=== PATIENT | male | born 1975 | race Caucasian/White ===

== ENCOUNTER 2017-05-20 08:12 | Emergency (ER) | payer SELFPAY ==
[~2017-05-20] VITALS: Ht 170.2 cm; Wt 95.5 kg
[~2017-05-20 08:12] MED LIST: NAPR-576 PO
[2017-05-20 08:17] VITALS: BP 137/92; PULSE 72; RESP 18; TEMP 98.1; O2SAT 96
[2017-05-20] MEDS ORDERED: CYCL1TAB29 PO (09:03)
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
== END 2017-05-20 09:11 | disposition home or self-care (01) ==
LOC: PHEFT 08:12
DX: S16.1XXA Strain of muscle, fascia and tendon at neck level, initial encounter (principal); X58.XXXA Exposure to other specified factors, initial encounter
CPT/HCPCS: 99283

== ENCOUNTER 2017-09-28 15:10 | Emergency (ER) | payer SELFPAY ==
[~2017-09-28] VITALS: Ht 170.2 cm; Wt 93.0 kg
[~2017-09-28 15:10] MED LIST changes: +CYCL10TA PO; -NAPR-576 PO
[2017-09-28 15:15] VITALS: BP 138/89; PULSE 73; RESP 18; TEMP 97.9; O2SAT 95
--- NOTE | 2017-09-28 15:42 | PD ---
HPI Chief Complaint: Cold / Flu Symptoms Time Seen by Provider: 15:26 Travel History International Travel<30 days: No Contact w/Intl Traveler<30days: No Traveled to known affect area: No History of Present Illness HPI C/O SORE THROAT, SUBJ FEVERS, GENERALIZED BODY ACHES, BURNING SORE THROAT, 8/10 , NOT IMPROVED....patient denies alleviating factors, aggravated by swallowing. PFSH Past Medical History Hx Anticoagulant Therapy: No Asthma: Yes Cancer: No Cardiovascular Problems: No Chemotherapy: No Cerebrovascular Accident: No Diabetes: No Diminished Hearing: No Endocrine: No Gastrointestinal Disorders: No Genitourinary: No Musculoskeletal: No Neurologic: No Psychiatric: No Reproductive: No Respiratory: Yes (ASTHMA) Immunizations Current: Yes Tetanus Vaccination: < 5 Years Influenza Vaccination: No Past Surgical History Body Medical Devices: JAW 4 SREWS AND 2 PLATES IN LEFT JAW Hysterectomy: No Oral Surgery: Yes (JAW DISLOCATION) Pacemaker: No Other Surgery: Yes (JAW SX) Social History Alcohol Use: No Tobacco Use: Yes (11/03) Substance Use: No Allergies-Medications (Allergen,Severity, Reaction): Uncoded Allergies: VISINE (Allergy, Severe, EYES SWELL., 09/28/17) Reported Meds & Prescriptions Reported Meds & Active Scripts Active Amoxicillin 875 Mg Tab 875 Mg PO BID 7 Days Lidocaine Viscous Liq 2 % Liqd 5 Ml SWISH-SWAL QID PRN Review of Systems Except as stated in HPI: all other systems reviewed are Neg General / Constitutional: No: Fever Eyes: No: Visual changes HENT: Positive: Sore Throat Cardiovascular: No: Chest Pain or Discomfort Respiratory: No: Shortness of Breath Gastrointestinal: No: Abdominal Pain Genitourinary: No: Dysuria Musculoskeletal: No: Pain Skin: No Rash Neurologic: No: Weakness Psychiatric: No: Depression Endocrine: No: Polydipsia Hematologic/Lymphatic: No: Easy Bruising Physical Exam Narrative GENERAL: SKIN: Warm and dry. HEAD: Atraumatic. Normocephalic. EYES: Pupils equal and round. No scleral icterus. No injection or drainage. ENT: No nasal bleeding or discharge. Mucous membranes pink and moist. ERYTHEMATOUS OROPHARYNX BILATERALLY NECK: Trachea midline. No JVD. ANT CERVICAL LAD CARDIOVASCULAR: Regular rate and rhythm. RESPIRATORY: No accessory muscle use. Clear to auscultation. Breath sounds equal bilaterally. GASTROINTESTINAL: Abdomen soft, non-tender, nondistended. MUSCULOSKELETAL: Extremities without clubbing, cyanosis, or edema. No obvious deformities. NEUROLOGICAL: Awake and alert. No obvious cranial nerve deficits. Motor grossly within normal limits. Five out of 5 muscle strength in the arms and legs. Normal speech. PSYCHIATRIC: Appropriate mood and affect; insight and judgment normal. Data Data Last Documented VS Orders Orders Group A Rapid Strep Screen (09/28/17 15:39) Influenzae A/B Antigen (09/28/17 15:39) Ketorolac Inj (Toradol Inj) (09/28/17 15:45) Strep Culture (Group A) (09/28/17 15:45) Ed Discharge Order (09/28/17 16:31) MDM Medical Decision Making Medical Screen Exam Complete: Yes Emergency Medical Condition: Yes Medical Record Reviewed: Yes Differential Diagnosis FLU V STREP V VIRAL SYNDROME Narrative Course flu test negative, strep screen neg however clinically condition c/w bacterial pharyngitis so will treat Diagnosis Primary Impression: PHARYNGITIS Patient Instructions: General Instructions, Pharyngitis (ED) Scripts Amoxicillin (Amoxicillin) 875 Mg Tab 875 MG PO BID for Infection for 7 Days, #14 TAB 0 Refills Prov: Hossein Rodriguez MD 09/28/17 Lidocaine Viscous Liq (Lidocaine Viscous Liq) 2 % Liqd 5 ML SWISH-SWAL QID Y for PAIN, #1 BOTTLE 0 Refills Prov: Hossein Rodriguez MD 09/28/17 Disposition: 01 DISCHARGE HOME Condition: Stable Hossein Rodriguez MD Sep 28, 2017 15:42
[2017-09-28] MEDS ORDERED: KETOROLAC TROMETHAMINE 60 MG/2 ML (IM) VIAL IM ONE (15:45)
[2017-09-28 15:50] VITALS: BP 133/80; PULSE 76; RESP 18; O2SAT 96
[2017-09-28] MEDS ORDERED: LIDO1SOL8 SWISH-SWAL (16:29)
[2017-09-28] MEDS ORDERED: AMOX875T PO (16:29)
== END 2017-09-28 16:44 | disposition home or self-care (01) ==
LOC: PHED 15:10
DX: J02.9 Acute pharyngitis, unspecified (principal); F17.200 Nicotine dependence, unspecified, uncomplicated
CPT/HCPCS: 87081; 87804; 87880; 96372; 99284; J1885

== ENCOUNTER 2018-01-15 22:07 | Emergency (ER) | payer SELFPAY ==
[~2018-01-15] VITALS: Ht 170.2 cm; Wt 93.7 kg
[~2018-01-15 22:07] MED LIST changes: +AMOX875T PO; -CYCL10TA PO; +LIDO1SOL8 SWISH-SWAL
[2018-01-15 22:14] VITALS: BP 132/86; PULSE 98; RESP 18; TEMP 98.5; O2SAT 98
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
[2018-01-16] MEDS ORDERED: IBUPROFEN 800 MG TAB PO ONE (00:15)
[2018-01-16] MEDS ORDERED: traMADol HCL 50 MG TAB PO ONE (00:15)
[2018-01-16] MEDS ORDERED: TRAM50TA PO (00:20)
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
[2018-01-16 00:57] VITALS: BP 135/86
== END 2018-01-16 00:59 | disposition home or self-care (01) ==
LOC: PHEFT 22:07
DX: S89.92XA Unspecified injury of left lower leg, initial encounter (principal); Y04.2XXA Assault by strike against or bumped into by another person, initial encounter
CPT/HCPCS: 73564; 99283

== ENCOUNTER 2018-08-07 02:33 | Inpatient (IN) ==
[2018-08-07] MEDS ORDERED: Sod Chloride 0.9% Inj 1,000 ML IV.SIG ONE (02:43)
[2018-08-07] MEDS ORDERED: Aluminum/Magnesium/Simethacone Susp 30 ML UDC PO ONE (02:44)
[2018-08-07] MEDS ORDERED: Pantoprazole Inj 40 MG Vial IV.PUSH ONE (02:44)
--- NOTE | 2018-08-07 02:49 | ED ---
HPI General Chief Complaint: Abdominal Pain Stated Complaint: Right flank pain/abd pain x 3 days Time Seen by Provider: 08/07/18 02:38 History of Present Illness HPI narrative: Patient is 43-year-old male with no significant past medical history, likes to eat very spicy food, abuse alcohol, presented to emergency room for epigastric abdominal pain for 3 days, constant. Denies nausea vomiting diarrhea. Related Data Home Medications Medication Instructions Recorded Confirmed No Known Home Medications 08/07/18 08/07/18 Allergies Allergy/AdvReac Type Severity Reaction Status Date / Time VISINE Allergy Severe EYES SWELL. Uncoded 06/25/18 12:46 Review of Systems ROS: all other systems reviewed are negative Gastrointestinal Reports abdominal pain PMFSH Medical History Medical History No active medical problems (Acute) Surgical History Surgical History History of mandibular surgery (Acute) Hx of knee surgery (Acute) Social History Social History Substance History: No History of Abuse Second Hand Smoke Exposure: Yes Smoking Status: Current every day smoker Tobacco Type: Cigarettes How Often Do You Have a Drink Containing Alcohol: 4 or more times a week Recent Travel in [facility] within the Last 8 Weeks: No Recent Out of Country Travel within the Last 8 Weeks: No Exam Narrative Exam Narrative: GENERAL: [-Patient is 43-year-old male with epigastric tenderness.] SKIN: Focused skin assessment warm/dry. HEAD: Atraumatic. Normocephalic. EYES: Pupils equal and round. No scleral icterus. No injection or drainage. ENT: No nasal bleeding or discharge. Mucous membranes pink and moist. NECK: Trachea midline. No JVD. CARDIOVASCULAR: Regular rate and rhythm. No murmur appreciated. RESPIRATORY: No accessory muscle use. Clear to auscultation. Breath sounds equal bilaterally. GASTROINTESTINAL: Abdomen soft, tender in the epigastric area, nondistended. Hepatic and splenic margins not palpable. Raymond sign is negative. MUSCULOSKELETAL: No obvious deformities. No clubbing. No cyanosis. No edema. NEUROLOGICAL: Awake and alert. No obvious cranial nerve deficits. Motor grossly within normal limits. Normal speech. PSYCHIATRIC: Appropriate mood and affect; insight and judgment normal. Course Initial Documented Vital Signs Temperature 97.9 F 08/07/18 02:37 Pulse Rate 92 H 08/07/18 02:37 Respiratory Rate 20 08/07/18 02:37 Blood Pressure 129/81 08/07/18 02:37 Pulse Oximetry 97 08/07/18 02:37 Last Documented Vital Signs Temperature 97.9 F 08/07/18 02:37 Pulse Rate 92 H 08/07/18 02:37 Respiratory Rate 20 08/07/18 02:37 Blood Pressure 129/81 08/07/18 02:37 Pulse Oximetry 97 08/07/18 02:37 Critical Care Time Critical Care Time: Yes Total Critical Care Time: 30 Attestation: Treated with 2 L of fluids, pain medications, patient has acute pancreatitis. Case discussed with hospitalist. For admission. Medical Decision Making MDM Narrative Medical decision making narrative: Blood work, urine analysis ordered, IV fluids GI cocktail given. Reevaluation is pending 0450: Patient feels better with pain medications and IV fluids, was diagnosed with acute pancreatitis, lipase level is 2700. She needs to be admitted for further evaluation and treatment, case was discussed with Dr. Elmore, accepted for admission. Medical Screen Exam Complete: Yes Emergency Medical Condition: Yes Differential Diagnosis Differential Diagnosis: Gastritis versus pancreatitis versus constipation versus gastric reflux. Lab Data Result diagrams: 08/07/18 03:07 08/07/18 03:07 Lab Results 08/07/18 08/07/18 08/07/18 Range/Units 03:07 03:07 03:07 CBC w Diff Auto diff final WBC 15.1 H (4.0-11.0) th/mm3 RBC 5.43 (4.50-5.90) mil/mm3 Hgb 17.7 H (13.0-17.0) gm/dL Hct 50.4 (39.0-51.0) % MCV 92.7 (80.0-100.0) fL MCH 32.5 (27.0-34.0) pg MCHC 35.1 (32.0-36.0) % RDW 12.6 (11.6-17.2) % Plt Count 189 (150-450) th/mm3 MPV 7.6 (7.0-11.0) fL Neut % (Auto) 66.8 (16.0-70.0) % Lymph % (Auto) 25.3 (9.0-44.0) % [place] % (Auto) 5.1 (0.0-8.0) % Eos % (Auto) 2.2 (0.0-4.0) % Baso % (Auto) 0.6 (0.0-2.0) % Neut # (Auto) 10.1 H (1.8-7.7) th/mm3 Lymph # (Auto) 3.8 (1.0-4.8) th/mm3 [place] # (Auto) 0.8 (0.0-0.9) th/mm3 Eos # (Auto) 0.3 (0.0-0.4) th/mm3 Baso # (Auto) 0.1 (0.0-0.2) th/mm3 WBC Differential . Differential Comment . Sodium 139 (136-145) meq/L Potassium 4.1 (3.5-5.1) meq/L Chloride 106 (98-107) meq/L Carbon Dioxide 24.1 (21.0-32.0) meq/L Anion Gap 9 (5-15) meq/L BUN 13 (7-18) mg/dL Creatinine 1.00 (0.60-1.30) mg/dL Estimated GFR 81 L (>89) mL/min Random Glucose 112 H (74-106) mg/dL Calcium 8.6 (8.5-10.1) mg/dL Total Bilirubin 0.3 (0.2-1.0) mg/dL AST 26 (15-37) U/L ALT 34 (12-78) U/L Alkaline Phosphatase 90 (45-117) U/L Total Protein 7.5 (6.4-8.2) g/dL Albumin 3.6 (3.4-5.0) g/dL Lipase 2725 H (73-393) U/L Urine Color Yellow (Yellw/Straw) Urine Clarity Clear (Clear) Urine pH 6.0 (5.0-8.5) Ur Specific [place] 1.025 (1.002-1.035) Urine Protein Trace (Neg-Trace) mg/dL Urine Glucose (UA) Negative (Negative) mg/dL Urine Ketones Negative (Negative) mg/dL Urine Occult Blood Moderate H (Negative) Urine Nitrate Negative (Negative) Urine Bilirubin Negative (Negative) Urine Urobilinogen 0.2 (Less than 2) mg/dL Ur Leukocyte Esterase Negative (Negative) Urine RBC 4-15 H (0-3) /hpf Urine WBC 0-5 (0-5) /hpf Ur Squamous Epith Cells 0-5 (0-5) /hpf Micro UA Comment Culture not ind Ur Microscopic Review Microscopic reviewed Urine Culture Comments Culture not ind Serum Alcohol Less than 3 (0-5) mg/dL Imaging Data Radiologist's impression: Chest X-Ray 08/07/18 03:31 CONCLUSION: No acute cardiopulmonary abnormality is identified. Abdomen/Pelvis CT 08/07/18 03:44 CONCLUSION: 1. There is nonspecific inflammation in the retroperitoneal fat adjacent to the pancreatic head, duodenum, and medial right kidney. No renal stones are present and the inflammatory changes are more centered around the second portion of the duodenum and adjacent to the head of the pancreas suggesting either duodenitis or mild pancreatitis as a potential cause. 2. Hepatic steatosis. ECG Data EKG Prior to Arrival: No Attestation: I personally reviewed and interpreted this ECG as follows: Prior ECG tracings: available for review Interpretation: Normal sinus rhythm with rate [address] elevation, nonspecific ST changes. Discharge Plan Discharge Disposition Patient Disposition: 30 Still Patient Discharge Condition Condition: Serious Discharge Details Diagnosis: Acute pancreatitis, Alcohol abuse Physicians Team ED Provider: Teto Moulton Primary Care Provider: Primary Care CarmelitaiMesha Rxs /Orders / Referrals /Forms Prescriptions: No Action No Known Home Medications RF: 0 Discharge Interventions Interventions: Vital Signs Last Done: 08/07/18 02:37 Status ED Status: Admitted Patient
[2018-08-07 03:19] LABS: Bilirubin,Urine Negative (Negative); Clarity,Urine Clear (Clear); Color,Urine Yellow (Yellw/Straw); Glucose,Urine (UA) Negative (Negative); Leukocyte Esterase,Urine Negative (Negative); Nitrite,Urine Negative (Negative); Specific Gravity,Urine 1.025 (1.002-1.035); Urobilinogen,Urine 0.2 mg/dL (Less than 2)
[2018-08-07 03:22] LABS: Baso # (Auto) 0.1 th/mm3 (0.0-0.2); Baso % (Auto) 0.6 % (0.0-2.0); Eos # (Auto) 0.3 th/mm3 (0.0-0.4); Eos % (Auto) 2.2 % (0.0-4.0); Hematocrit 50.4 % (39.0-51.0); Hemoglobin 17.7 gm/dL (13.0-17.0); Lymph # (Auto) 3.8 th/mm3 (1.0-4.8); Lymph % (Auto) 25.3 % (9.0-44.0); Mean Corpuscular HGB Conc 35.1 % (32.0-36.0); Mean Corpuscular Hemoglobin 32.5 pg (27.0-34.0); Mean Corpuscular Volume 92.7 fL (80.0-100.0); Mean Platelet Volume 7.6 fL (7.0-11.0); Mono # (Auto) 0.8 th/mm3 (0.0-0.9); Mono % (Auto) 5.1 % (0.0-8.0); Neut # (Auto) 10.1 th/mm3 (1.8-7.7); Neut % (Auto) 66.8 % (16.0-70.0); Platelet Count 189 th/mm3 (150-450); Red Blood Count 5.43 mil/mm3 (4.50-5.90); Red Cell Distribution Width 12.6 % (11.6-17.2); White Blood Count 15.1 th/mm3 (4.0-11.0)
[2018-08-07 03:28] LABS: Squamous Epithelial Cell,Urine 0-5 /hpf (0-5); WBC,Urine 0-5 /hpf (0-5)
[2018-08-07 03:29] LABS: Chloride 106 meq/L (98-107); Potassium 4.1 meq/L (3.5-5.1); Sodium 139 meq/L (136-145)
[2018-08-07 03:32] LABS: Calcium 8.6 mg/dL (8.5-10.1)
[2018-08-07] MEDS ORDERED: Morphine Sulfate Inj 2 MG/ML Vial IV.PUSH ONE (03:32)
[2018-08-07 03:33] LABS: Albumin 3.6 g/dL (3.4-5.0); Anion Gap 9 meq/L (5-15); Blood Urea Nitrogen 13 mg/dL (7-18); Carbon Dioxide 24.1 meq/L (21.0-32.0); Glucose,Random 112 mg/dL (74-106)
[2018-08-07 03:36] LABS: Alanine Aminotransferase 34 U/L (12-78); Aspartate Aminotransferase 26 U/L (15-37); Glomerular Filtration Rate 81 mL/min (>89)
[2018-08-07 03:37] LABS: Total Protein 7.5 g/dL (6.4-8.2)
[2018-08-07 03:38] LABS: Lipase 2725 U/L (73-393)
[2018-08-07 03:39] LABS: Alkaline Phosphatase 90 U/L (45-117)
--- NOTE | 2018-08-07 03:49 | XR ---
EXAM DATE: 08/07/2018 3:31 AM EDT AGE/SEX: 43 years / Male INDICATIONS: Chest pain. CLINICAL DATA: This is the patient's initial encounter. Patient reports that signs and symptoms have been present for 3 days and indicates a pain score of 5/10. MEDICAL/SURGICAL HISTORY: None. None. COMPARISON: [facility], CHEST SINGLE AP, 10/22/2015. . FINDINGS: Portable AP view of the chest demonstrates a normal-sized cardiac silhouette. No effusion, consolidat ion, or pneumothorax is identified. The bones and soft tissues demonstrate no acute finding. CONCLUSION: No acute cardiopulmonary abnormality is identified. Electronically signed by: Lukas Byrd MD 08/07/2018 3:47 AM EDT
[2018-08-07] MEDS ORDERED: Sod Chloride 0.9% Inj 1,000 ML IV.CONT SCH (04:00)
--- NOTE | 2018-08-07 04:48 | CT ---
EXAM DATE: 08/07/2018 3:52 AM EDT AGE/SEX: 43 years / Male INDICATIONS: Abdominal pain. Right flank pain. Both for three days. CLINICAL DATA: This is the patient's initial encounter. Patient reports that signs and symptoms have been present for 1 day and indicates a pain score of 8/10. MEDICAL/SURGICAL HISTORY: . . Mandibular. Knee. RADIATION DOSE: 17.65 CTDI (mGy) COMPARISON: No prior exams available for comparison. TECHNIQUE: Multiple contiguous axial images were obtained through the abdomen. Images were obtained using multiple row detector helical technique. Using automated exposure control and adjustment of the mA and/or kV according to patient size, radiation dose was kept as low as reasonably achievable to o btain optimal diagnostic quality images. DICOM format image data is available electronically for rev iew and comparison. FINDINGS: Lower chest: No acute abnormality is identified. Hepatobiliary: Liver density is decreased indicating steatosis. There is fat sparing around the gallb ladder fossa. No focal liver lesion is identified on this noncontrast examination. No calcified galls tones are present. Kidneys: No hydronephrosis, stone, or mass. There is mild inflammatory change adjacent to the medial right kidney. Adrenal Glands: Within normal limits. Spleen: Within normal limits. Pancreas: There is mild inflammatory change adjacent to the pancreatic head. Remainder of the pancrea s demonstrates no abnormality. Vascular: The aorta is nonaneurysmal. Bowel/Mesentery: Stomach demonstrates no abnormality. There is mild retroperitoneal inflammatory retana ge in the fat adjacent to the second portion the duodenum and pancreatic head. No free air or free fl uid is identified. Abdominal Wall: No hernia is visualized. Retroperitoneum: No lymphadenopathy. Bladder: No wall thickening or mass. Reproductive: There is vas deferens calcification. Inguinal: No lymphadenopathy or hernia. Musculoskeletal: No acute osseous abnormality is identified. CONCLUSION: 1. There is nonspecific inflammation in the retroperitoneal fat adjacent to the pancreatic head, duo denum, and medial right kidney. No renal stones are present and the inflammatory changes are more bella tered around the second portion of the duodenum and adjacent to the head of the pancreas suggesting e ither duodenitis or mild pancreatitis as a potential cause. 2. Hepatic steatosis. Electronically signed by: Lukas Byrd MD 08/07/2018 4:47 AM EDT
[2018-08-07] MEDS ORDERED: Bisacodyl 10 MG Supp RECTAL PRN (04:56)
[2018-08-07] MEDS ORDERED: Acetaminophen 325 MG Tablet PO PRN (04:56)
[2018-08-07] MEDS ORDERED: LORazepam 1 MG Tablet PO PRN (04:56)
[2018-08-07] MEDS ORDERED: Haloperidol Inj 5 MG/ML Ampul IV.PUSH PRN (04:56)
[2018-08-07] MEDS ORDERED: Morphine Sulfate Inj 2 MG/ML Vial IV.PUSH PRN (04:57)
[2018-08-07] MEDS: Sod Chloride 0.9% Inj 1,000 ML IV.CONT SCH ×2 (05:09→14:58)
[2018-08-07] MEDS ORDERED: Sodium Chloride 0.9% 2 ML Flush PRN IV.FLUSH (05:13)
--- NOTE | 2018-08-07 08:50 | P.HP ---
History of Present Illness Primary Care Physician: No Primary Care Physician Chief Complaint: Abdominal pain History of Present Illness: This is a pleasant 43-year-old male patient with a known medical history of tobacco abuse who presented to the ED with complaints of abdominal pain. Patient states that Tuesday night he developed a sharp mid epigastric abdominal pain that radiated to his right lower quadrant. He states that the pain continued throughout the day on Tuesday and states he was unable to sleep secondary to the pain which prompted his presentation to the ED. Patient denies any associated nausea, vomiting, diarrhea with the pain. He states that Tuesday evening he did drink a few beers with his friends which may have caused his symptoms. Patient does state that he drinks beer only on the weekends and usually only 3-4 at a time. He denies any recent illness including fever, chills, cough, headache, chest pain, or dysuria. Does admit to a significant family medical history of colon cancer in his mother's side. Denies ever having a colonoscopy in the past. Does not follow with a PCP. - Diagnosis (1) Acute pancreatitis (2) Alcohol abuse Inpatient Certification: I certify that the inpatient services were ordered in accordance with Medicare regulations governing the order. This includes certification that hospital inpatient services are reasonable and necessary and in the case of services not specified as inpatient-only under 42 CFR 419.22(n), that they are appropriately provided as inpatient services in accordance to with the 2-midnight benchmark under 43 CFR 412.3(e) Estimated Total Length of Stay (Days): 2 Plans for Post Hospital Care: Not yet determined Review of Systems All other systems reviewed negative except as stated in [facility] - History History Provided By: Patient - Medical History Medical History: Medical History (Last Reviewed 08/07/18 @ 09:26 by Raiza Wright) No active medical problems - Surgical History Surgical History: Surgical History (Last Reviewed 08/07/18 @ 09:26 by Raiza Wright) History of mandibular surgery Hx of knee surgery - Family History Family History: Family History (Last Updated 08/07/18 @ 09:26 by Raiza Wright) Other Family history in first degree relatives is unremarkable - Social History I have reviewed the patient's Social History: Yes - Tobacco History Second Hand Smoke Exposure: Yes Tobacco Use In Past 30 Days: Yes Smoking Status: Current every day smoker Tobacco Type: Cigarettes - Alcohol History How Often Do You Have a Drink Containing Alcohol: 4 or more times a week - Substance Use History Substance History: No History of Abuse - Travel History Recent Travel in the [place] Within the Last 8 Weeks: No Recent Travel Out of the Country Within the Last 8 Weeks: No - Immunization History Tetanus Immunization: <5 Years Medications and Allergies Active Medications: Active Medications Acetaminophen (Tylenol) 650 mg PO Q4H PRN PRN Reason: Temp > 100.4 Al Hydroxide/Mg Hydroxide (Milk Of Magnesia Liq) 30 ml PO Q12H PRN PRN Reason: Mild Constipation Bisacodyl (Dulcolax Supp) 10 mg RECTAL DAILY PRN PRN Reason: SEVERE CONSITIPATION Flumazenil (Romazecon Inj) 0.2 mg IV.PUSH Q1M PRN PRN Reason: OVERSEDATION Folic Acid (Folic Acid) 1 mg PO DAILY [facility]ILVER Stop: 08/12/18 08:59 Haloperidol Lactate (Haldol Inj) 1 mg IV.PUSH Q15M PRN PRN Reason: for severe agitation Sodium Chloride (Ns Inj) 1,000 mls @ 100 mls/hr IV.CONT .Q10H WILVER Last Admin: 08/07/18 05:09 Dose: 100 mls/hr Lactulose (Lactulose Liq) 30 ml PO DAILY PRN PRN Reason: SEVERE CONSITIPATION Lorazepam (Ativan) 1 mg PO Q4H PRN PRN Reason: for CIWA 8-10 Lorazepam (Ativan Inj) 2 mg IV.PUSH Q2H PRN PRN Reason: for CIWA 11-14 Lorazepam (Ativan Inj) 2 mg IV.PUSH Q1H PRN PRN Reason: for CIWA 15-20 Lorazepam (Ativan Inj) 2 mg IV.PUSH Q15M PRN PRN Reason: for CIWA > 20 Lorazepam (Ativan Inj) 1 mg IV.PUSH Q4H PRN PRN Reason: for CIWA 8-10 Lorazepam (Ativan) 2 mg PO Q2H PRN PRN Reason: for CIWA 11-14 Morphine Sulfate (Morphine Inj) 2 mg IV.PUSH Q4H PRN PRN Reason: PAIN 6-10 Multivitamins/Minerals (Theragran-M) 1 tab PO DAILY [facility]ILVER Stop: 08/12/18 08:59 Ondansetron HCl (Zofran Inj) 4 mg IV.PUSH Q6H PRN PRN Reason: NAUSEA OR VOMITING Pantoprazole Sodium (Protonix Inj) 40 mg IV.PUSH Q12H [facility] Senna/Docusate Sodium (Wendy-Colace) 1 tab PO BID W[place]VER Sennosides (Senokot) 17.2 mg PO Q12H PRN PRN Reason: Moderate Constipation Sodium Chloride (Ns Flush) 2 ml IV.FLUSH BID WILVER Sodium Chloride (Ns Flush) 2 ml IV.FLUSH PRN PRN PRN Reason: FLUSH AFTER USING IV ACCESS Thiamine HCl (Vitamin B1) 100 mg PO DAILY WILVER Allergies Allergy/AdvReac Type Severity Reaction Status Date / Time VISINE Allergy Severe EYES SWELL. Uncoded 06/25/18 12:46 Home Medications Medication Instructions Recorded Confirmed Type No Known Home Medications 08/07/18 08/07/18 History Exam Vital signs: Vital Signs 08/07/18 02:37 08/07/18 05:52 08/07/18 06:00 Temperature 97.9 F 96.2 F L Pulse Rate 92 H 91 H 63 Respiratory Rate 20 20 18 Blood Pressure 129/81 124/78 127/95 H Pulse Oximetry 97 99 97 08/07/18 08:00 Temperature 96.1 F L Pulse Rate 62 Respiratory Rate Blood Pressure 166/57 H Pulse Oximetry 97 Intake & Output 08/06/18 08/07/18 08/07/18 18:59 06:59 18:59 Weight 90.7 kg Narrative: GENERAL: Well-developed, well-nourished patient in [facility]. SKIN: Warm and dry. No rash. HEAD: Normocephalic. Atraumatic. EYES: Pupils equal and round. No scleral icterus. No injection or drainage. ENT: No nasal bleeding or discharge. Mucous membranes pink and moist. NECK: Supple. Trachea midline. CARDIOVASCULAR: Regular rate and rhythm. S1, S2 noted. No murmur appreciated. RESPIRATORY: No accessory muscle use. Clear to auscultation. Breath sounds equal bilaterally. GASTROINTESTINAL: Abdomen soft, nondistended. Normoactive bowel sounds x4. Midepigastric abdominal pain to palpation. MUSCULOSKELETAL: No obvious deformities. Extremities without clubbing, cyanosis , or edema. NEUROLOGICAL: Awake and alert. No obvious cranial nerve deficits. Motor grossly within normal limits. 5/5 muscle strength in bilateral upper and lower extremities. Normal speech. PSYCHIATRIC: Appropriate mood and affect; insight and judgment normal. Results - Labs CBC & Chem 7: 08/07/18 03:07 08/07/18 03:07 Labs: Laboratory Results - last 24 hr 08/07/18 08/07/18 08/07/18 03:07 03:07 03:07 CBC w Diff Auto diff final WBC 15.1 H RBC 5.43 Hgb 17.7 H Hct 50.4 MCV 92.7 MCH 32.5 MCHC 35.1 RDW 12.6 Plt Count 189 MPV 7.6 Neut % (Auto) 66.8 Lymph % (Auto) 25.3 [place] % (Auto) 5.1 Eos % (Auto) 2.2 Baso % (Auto) 0.6 Neut # (Auto) 10.1 H Lymph # (Auto) 3.8 [place] # (Auto) 0.8 Eos # (Auto) 0.3 Baso # (Auto) 0.1 WBC Differential . Differential Comment . Sodium 139 Potassium 4.1 Chloride 106 Carbon Dioxide 24.1 Anion Gap 9 BUN 13 Creatinine 1.00 Estimated GFR 81 L Random Glucose 112 H Calcium 8.6 Total Bilirubin 0.3 AST 26 ALT 34 Alkaline Phosphatase 90 Total Protein 7.5 Albumin 3.6 Lipase 2725 H Urine Color Yellow Urine Clarity Clear Urine pH 6.0 Ur Specific [place] 1.025 Urine Protein Trace Urine Glucose (UA) Negative Urine Ketones Negative Urine Occult Blood Moderate H Urine Nitrate Negative Urine Bilirubin Negative Urine Urobilinogen 0.2 Ur Leukocyte Esterase Negative Urine RBC 4-15 H Urine WBC 0-5 Ur Squamous Epith Cells 0-5 Micro UA Comment Culture not ind Ur Microscopic Review Microscopic reviewed Urine Culture Comments Culture not ind Serum Alcohol Less than 3 - Imaging Impressions Chest X-Ray 08/07/18 03:31 CONCLUSION: No acute cardiopulmonary abnormality is identified. Abdomen/Pelvis CT 08/07/18 03:44 CONCLUSION: 1. There is nonspecific inflammation in the retroperitoneal fat adjacent to the pancreatic head, duodenum, and medial right kidney. No renal stones are present and the inflammatory changes are more centered around the second portion of the duodenum and adjacent to the head of the pancreas suggesting either duodenitis or mild pancreatitis as a potential cause. 2. Hepatic steatosis. Caprini VTE Risk Assessment Caprini VTE Risk Assessment: No/Low Risk (score <= 1) Caprini Risk Assessment Model: Point Value = 1 Point Value = 2 Point Value = 3 Point Value = 5 Age 41-60 Minor surgery BMI > 25 kg/m2 Swollen legs Varicose veins or History of unexplained or recurrent spontaneous Oral contraceptives or hormone replacement Sepsis (< 1 month) Serious lung disease, including pneumonia (< 1 month) Abnormal pulmonary function Acute myocardial infarction Congestive heart failure (< 1 month) History of inflammatory bowel disease Medical patient at bed rest Age 61-74 Arthroscopic surgery Major open surgery (> 45 min) Laparoscopic surgery (> 45 min) Malignancy Confined to bed (> 72 hours) Immobilizing plaster cast Central venous access Age >= 75 History of VTE Family history of VTE Factor V Leiden Prothrombin [id number] Lupus anticoagulant Anticardiolipin antibodies Elevated serum homocysteine Heparin-induced thrombocytopenia Other congenital or acquired thrombophilia Stroke (< 1 month) Elective arthroplasty Hip, pelvis, or leg fracture Acute spinal cord injury (< 1 month) Prophylaxis Regimen: Total Risk Factor Score Risk Level Prophylaxis Regimen 0-1 Low Early ambulation 2 Moderate Order ONE of the following: *Sequential Compression Device (SCD) *Heparin 5000 units SQ BID 3-4 Higher Order ONE of the following medications: *Heparin 5000 units SQ TID *Enoxaparin/Lovenox 40 mg SQ daily (WT < 150 kg, CrCl > 30 mL/min) *Enoxaparin/Lovenox 30 mg SQ daily (WT < 150 kg, CrCl > 10-29 mL/min) *Enoxaparin/Lovenox 30 mg SQ BID (WT < 150 kg, CrCl > 30 mL/min) AND/OR *Sequential Compression Device (SCD) 5 or more Highest Order ONE of the following medications: *Heparin 5000 units SQ TID (Preferred with Epidurals) *Enoxaparin/Lovenox 40 mg SQ daily (WT < 150 kg, CrCl > 30 mL/min) *Enoxaparin/Lovenox 30 mg SQ daily (WT < 150 kg, CrCl > 10-29 mL/min) *Enoxaparin/Lovenox 30 mg SQ BID (WT < 150 kg, CrCl > 30 mL/min) AND *Sequential Compression Device (SCD) Assessment and Plan - Assessment (1) Acute pancreatitis Code(s): K85.90 - Acute pancreatitis without necrosis or infection, unspecified Status: Acute (2) Alcohol abuse Code(s): F10.10 - Alcohol abuse, uncomplicated Status: Acute - Plan This is a 43-year-old male patient with: Acute pancreatitis suspect secondary to alcohol Possible duodenitis -Patient complaint of abdominal pain x 1 day. Lipase 2725. -Patient states he developed these symptoms after drinking a few beers with his friends on Tuesday night. Alcohol use on weekends, 3-4 beers at a time. No history of pancreatitis. Encouraged cessation of alcohol, likely cause of pancreatitis. -Abdominal/pelvis CT reviewed and showing duodenitis vs pancreatitis. -CBC and BMP reviewed showing some leukocytosis. No bandemia. Likely secondary to pancreatitis. Will monitor. No fever. UA and CXR negative. H&H stable. -Started on Protonix IV BID. -Pain control with IV morphine as needed per pain scale. -Attempt clear liquids. Ensure hydration, continue IVF. -Supportive care. Tobacco abuse: Encouraged cessation. DVT prophylaxis: SCDs. Early ambulation. Discharge Planning: Await clinical improvement.
[2018-08-07] MEDS: Senna/Docusate Sodium 8.6/50 MG Tablet PO SCH ×2 (09:17→21:39)
[2018-08-07] MEDS: Multivitamin/Minerals Therapeutic Tablet PO SCH (09:17)
[2018-08-07] MEDS: Folic Acid 1 MG Tablet PO SCH (09:17)
[2018-08-07] MEDS: Sodium Chloride 0.9% 2 ML Flush BID IV.FLUSH SCH ×2 (09:18→20:37)
--- NOTE | 2018-08-07 11:46 | ECG ---
Date Performed: 08/07/2018 Time Performed: 03:59:44 PTAGE: 43 years EKG: NORMAL Sinus rhythm BORDERLINE LEFT AXIS DEVIATION Nonspecific ST and T wave abnormalities INCOMPLETE Right bundle branc h block BORDERLINE ECG PREVIOUS TRACING : 08/05/2014 16.41 DOCTOR: Stacy Eaton Interpretating Date/Time 08/07/2018 11:45:48
[2018-08-07] MEDS: Pantoprazole Inj 40 MG Vial IV.PUSH SCH (21:38)
[2018-08-08] MEDS: Sod Chloride 0.9% Inj 1,000 ML IV.CONT SCH ×2 (04:19→12:08)
[2018-08-08 06:36] LABS: Baso # (Auto) 0.1 th/mm3 (0.0-0.2); Baso % (Auto) 1.1 % (0.0-2.0); Eos # (Auto) 0.2 th/mm3 (0.0-0.4); Eos % (Auto) 2.4 % (0.0-4.0); Hematocrit 47.6 % (39.0-51.0); Hemoglobin 16.6 gm/dL (13.0-17.0); Lymph # (Auto) 3.7 th/mm3 (1.0-4.8); Lymph % (Auto) 37.4 % (9.0-44.0); Mean Corpuscular HGB Conc 34.8 % (32.0-36.0); Mean Corpuscular Hemoglobin 32.4 pg (27.0-34.0); Mean Corpuscular Volume 93.1 fL (80.0-100.0); Mean Platelet Volume 7.6 fL (7.0-11.0); Mono # (Auto) 0.5 th/mm3 (0.0-0.9); Mono % (Auto) 4.9 % (0.0-8.0); Neut # (Auto) 5.5 th/mm3 (1.8-7.7); Neut % (Auto) 54.2 % (16.0-70.0); Platelet Count 172 th/mm3 (150-450); Red Blood Count 5.11 mil/mm3 (4.50-5.90); Red Cell Distribution Width 12.6 % (11.6-17.2)
[2018-08-08 06:41] LABS: Chloride 106 meq/L (98-107); Potassium 4.3 meq/L (3.5-5.1); Sodium 141 meq/L (136-145)
[2018-08-08 06:46] LABS: Albumin 3.1 g/dL (3.4-5.0); Calcium 8.1 mg/dL (8.5-10.1)
[2018-08-08 06:47] LABS: Anion Gap 7 meq/L (5-15); Blood Urea Nitrogen 6 mg/dL (7-18); Carbon Dioxide 28.4 meq/L (21.0-32.0); Glucose,Random 96 mg/dL (74-106); Lipase 638 U/L (73-393); Magnesium 2.1 mg/dL (1.5-2.5)
[2018-08-08 06:50] LABS: Alanine Aminotransferase 27 U/L (12-78); Aspartate Aminotransferase 19 U/L (15-37); Glomerular Filtration Rate Greater Than 89 mL/min (>89)
[2018-08-08 06:51] LABS: Total Protein 6.4 g/dL (6.4-8.2)
[2018-08-08 06:52] LABS: Alkaline Phosphatase 66 U/L (45-117)
[2018-08-08 08:11] VITALS: O2SAT 96
[2018-08-08] MEDS: Pantoprazole Inj 40 MG Vial IV.PUSH SCH (09:44)
[2018-08-08] MEDS: Multivitamin/Minerals Therapeutic Tablet PO SCH (09:44)
[2018-08-08] MEDS: Folic Acid 1 MG Tablet PO SCH (09:44)
[2018-08-08] MEDS: Sodium Chloride 0.9% 2 ML Flush BID IV.FLUSH SCH (09:44)
[2018-08-08] MEDS: Senna/Docusate Sodium 8.6/50 MG Tablet PO SCH (09:44)
--- NOTE | 2018-08-08 10:24 | P.PN ---
Subjective Interval history: 43-year-old male who is seen and examined today for follow-up on acute pancreatitis. Patient up walking around the room. States that he is doing much better. He starts hitting his stomach seen and no longer have any pain. States that he wants to eat real food. Patient wants to be discharged after he eats lunch. Patient has clinically improved significantly. Vital signs are stable. Patient remains afebrile. Patient not required any medications for any alcohol withdrawal. Physical Exam Vital signs: Vital Signs 08/07/18 12:00 08/07/18 16:00 08/07/18 20:00 Temperature 96.6 F L 96.7 F L 96.3 F L Pulse Rate 61 63 61 Respiratory Rate 20 20 20 Blood Pressure 112/73 134/80 131/76 Pulse Oximetry 94 L 97 97 08/08/18 00:00 08/08/18 08:00 Temperature 96.7 F L 97.1 F L Pulse Rate 60 69 Respiratory Rate 20 18 Blood Pressure 119/64 142/67 H Pulse Oximetry 98 96 Intake & Output 08/07/18 08/08/18 08/08/18 18:59 06:59 18:59 Intake Total 3290 / 3290 1000 / 1000 Output Total 425 / 425 Balance 3290 / 3290 575 / 575 Weight 95.3 kg Intake: IV 2000 / 1999 1000 / 1000 NS Inj 1,000 ML @ 100 mls/hr IV 1000 / 1000 1000 / 1000 .CONT .Q10H WILVER Rx#:[id number] NS Inj 1,000 ML @ Wide Open IV. 1000 / 1000 SIG BOLUS ONE Rx#:[id number] Oral 1290 / 1290 0 / 0 Output: Urine 425 / 425 Other: # Voids 2 Narrative: GENERAL: Well-developed, well-nourished, in no acute distress. alert and orientated HEENT: Head is normocephalic without any lesions or masses noted. Facial features are symmetric. Eyes: Extraocular muscles are intact. Conjunctivae were clear. NECK: Supple without any masses. Trachea midline no deviation. No JVD, CARDIAC: Regular rhythm, regular rate. S1/S2 are heard. No murmurs gallops or rubs. LUNGS: Clear to auscultation bilaterally. No wheeze, rhonchi or rales. No use of accessory muscles on inspiration or expiration. ABDOMEN: Soft, nontender. Nondistended. Bowel sounds heard in all 4 quadrants. No organomegaly or masses. Negative rebound, negative guarding EXTREMITIES: No edema, pulses are equal bilaterally. No cyanosis or clubbing NEUROLOGY: Mood and affect appear appropriate. Cranial nerves II through XII grossly intact. Moving all extremities, speech is clear Results - Labs CBC & Chem 7: 08/08/18 05:52 08/08/18 05:52 Laboratory Results - last 24 hr 08/07/18 08/07/18 08/07/18 13:28 16:54 17:16 CBC w Diff WBC RBC Hgb Hct MCV MCH MCHC RDW Plt Count MPV Neut % (Auto) Lymph % (Auto) [place] % (Auto) Eos % (Auto) Baso % (Auto) Neut # (Auto) Lymph # (Auto) [place] # (Auto) Eos # (Auto) Baso # (Auto) WBC Differential Differential Comment Sodium Potassium Chloride Carbon Dioxide Anion Gap BUN Creatinine Estimated GFR POC Glucose 123 H 69 112 H Random Glucose Calcium Magnesium Total Bilirubin AST ALT Alkaline Phosphatase Total Protein Albumin Lipase 08/08/18 08/08/18 08/08/18 05:52 05:52 07:40 CBC w Diff Auto diff final WBC 10.0 RBC 5.11 Hgb 16.6 Hct 47.6 MCV 93.1 MCH 32.4 MCHC 34.8 RDW 12.6 Plt Count 172 MPV 7.6 Neut % (Auto) 54.2 Lymph % (Auto) 37.4 [place] % (Auto) 4.9 Eos % (Auto) 2.4 Baso % (Auto) 1.1 Neut # (Auto) 5.5 Lymph # (Auto) 3.7 [place] # (Auto) 0.5 Eos # (Auto) 0.2 Baso # (Auto) 0.1 WBC Differential . Differential Comment . Sodium 141 Potassium 4.3 Chloride 106 Carbon Dioxide 28.4 Anion Gap 7 BUN 6 L Creatinine 0.84 Estimated GFR Greater than 89 POC Glucose 107 Random Glucose 96 Calcium 8.1 L Magnesium 2.1 Total Bilirubin 0.4 AST 19 ALT 27 Alkaline Phosphatase 66 Total Protein 6.4 D Albumin 3.1 L Lipase 638 H Assessment and Plan - Assessment (1) Acute pancreatitis Code(s): K85.90 - Acute pancreatitis without necrosis or infection, unspecified Status: Acute (2) Alcohol abuse Code(s): F10.10 - Alcohol abuse, uncomplicated Status: Acute - Plan Acute pancreatitis with possible duodenitis; resolved -suspect secondary to alcohol -Abdominal/pelvis CT reviewed and showing duodenitis vs pancreatitis. -Patient presenting with lipase 2725, which has significantly improved -Patient tolerating diet at this time without any abdominal pain -Patient was started on Protonix IV BID. -Pain control with IV morphine as needed per pain scale. -Advance diet as tolerated -Supportive care. Tobacco abuse: -Encouraged cessation. DVT prophylaxis: -Sequential compression devices, early ambulation. Discharge Planning: Discharge home in stable condition Activity: Ad suellen. Diet: Regular diet Medication per medication reconciliation Follow-up with primary medical doctor in 1 week
[2018-08-08 12:39] VITALS: BP 146/86; PULSE 59; RESP 20; TEMP 96.4
== END 2018-08-08 13:13 | disposition home or self-care (01) ==
LOC: PHED 02:33 → PHEDA 05:02 → PH3 06:06
PROVIDERS: ADMIT Internal Medicine; ATTEND Internal Medicine